=== PATIENT | female | born 1980 | race Caucasian/White ===

== ENCOUNTER 2018-07-12 16:04 | Inpatient (IN) | payer BC ==
[2018-07-12] MEDS ORDERED: DINOPROSTONE 10 MG INSERT.ER VAGINAL ONE (16:29)
--- NOTE | 2018-07-12 17:02 | P.HPOB ---
History of Present Illness H&P Date: 07/12/18 Chief Complaint: Requesting induction of labor. This patient is a pleasant 38-year-old 2 para 1 female 39-4/7 weeks gestation who is admitted to labor and delivery for two-stage induction of labor secondary to maternal discomfort requesting induction of labor. Patient's care is complicated by advanced for maternal age. Patient was counseled about her advanced for maternal age and she did not request any specialized testing or maternal medicine referral. Anatomy ultrasound has been normal. She's had normal testing with nonstress tests and serial ultrasounds. Most recent ultrasound was on June 29 which showed estimated weight at 7 lbs. 10 oz. Review of Systems Gastrointestinal: Reports heartburn Genitourinary: Reports Menstruation: Reports amenorrhea Past Medical History Past Medical History: No Reported History Additional Past Medical History / Comment(s): Patient had a term vaginal delivery 7 lbs. 9 oz. baby girl in 2010. History of Any Multi-Drug Resistant Organisms: None Reported Past Surgical History: No Surgical Hx Reported Past Anesthesia/Blood Transfusion Reactions: No Reported Reaction Past Psychological History: Depression Smoking Status: Former smoker (Quit with the .) Past Alcohol Use History: None Reported Past Drug Use History: None Reported Medications and Allergies Home Medications Medication Instructions Recorded Confirmed Type Calcium Carbonate [Tums] 500 mg PO DIRECTED PRN 07/12/18 07/12/18 History Pnv No.95/Ferrous Fum/Folic AC 1 tab PO DAILY 07/12/18 07/12/18 History [ Multivitamin Tablet] Allergies Allergy/AdvReac Type Severity Reaction Status Date / Time Sulfa (Sulfonamide Allergy Rash/Hives Verified 07/12/18 16:28 Antibiotics) Exam Intake and Output 07/12/18 07/12/18 07/12/18 06:59 14:59 22:59 Other: Weight 144.242 kg - OBG Physical Exam Abdomen: bowel sounds normal, no diffuse tenderness, no bruit present, no guarding noted, no hepatomegaly, no splenomegaly, no mass Vulva: both: normal Vagina: normal moisture, no discharge Cervix: no lesion (Cervix is fingertip and thick.), no discharge Uterus: enlarged (Fundal height is 42 cm) Results blood work shows she is O-, rubella immune, RPR nonreactive, hepatitis B is negative, toxoplasmosis was negative, Glucola was 142 with a normal three- hour gtt., patient received RhoGAM on May 03, growth ultrasounds have been normal and most recent ultrasound shows 7 lbs. 10 oz. Group B strep was negative. Assessment and Plan Assessment: This is a pleasant 38-year-old 2 para 1 female 39-4/7 weeks gestation who is presenting for requested two-stage induction of labor secondary to maternal discomfort at term and unfavorable cervix. Patient I've had a long discussion about induction process and increased risk of section. Patient's time wishes to proceed. Plan is Cervidil placement and anticipate vaginal delivery. (1) 39 weeks gestation of Current Visit: Yes Status: Acute Code(s): Z3A.39 - 39 WEEKS GESTATION OF SNOMED Code(s): 63366289 (2) Elderly multigravida in third trimester Current Visit: Yes Status: Acute Code(s): O09.523 - SUPERVISION OF ELDERLY MULTIGRAVIDA, THIRD TRIMESTER SNOMED Code(s): 056119204 (3) Morbid obesity Current Visit: Yes Status: Acute Code(s): E66.01 - MORBID (SEVERE) OBESITY DUE TO EXCESS CALORIES SNOMED Code(s): 137454728 (4) Elective induction of labor planned Current Visit: Yes Status: Acute Code(s): QMY5860 - SNOMED Code(s): 653395116
[2018-07-12 17:03] VITALS: BMI 51.3
[2018-07-13] MEDS ORDERED: TERBUTALINE 1 MG/ML VIAL SQ PRN (00:57)
[2018-07-13] MEDS ORDERED: LIDOCAINE 0.5% (PF) 5 MG/ML (50 ML SDV) SQ PRN (00:57)
[2018-07-13] MEDS ORDERED: OXYTOCIN 10 UNIT/ML 1 ML VIAL IM PRN (00:57)
[2018-07-13] MEDS ORDERED: METHYLERGONOVINE 0.2 MG/ML 1 ML AMP IM PRN (00:57)
[2018-07-13] MEDS ORDERED: OXYTOCIN 30 UNITS/500 ML NS 30 UNIT in SALINE 1 500ML.BAG IV SCH (00:57)
[2018-07-13] MEDS ORDERED: CARBOPROST TROMETHAMINE 250 MCG/ML 1 ML AMP IM PRN (00:57)
[2018-07-13] MEDS: BUTORPHANOL 1 MG/ML 1 ML VIAL IV PRN ×2 (01:19→06:07)
[2018-07-13 01:33] LABS: Basophils % (A) 0 %; Eosinophils # (A) 0.1 k/uL (0-0.7); Eosinophils % (A) 1 %; HCT 34.5 % (34.0-46.0); HGB 11.4 gm/dL (11.4-16.0); Lymphocytes # (A) 2.5 k/uL (1.0-4.8); Lymphocytes % (A) 21 %; MCH 29.2 pg (25.0-35.0); MCHC 33.1 g/dL (31.0-37.0); MCV 88.3 fL (80.0-100.0); Mean Platelet Volume 9.1; Monocytes # (A) 0.6 k/uL (0-1.0); Monocytes % (A) 5 %; Neutrophils # (A) 8.6 k/uL (1.3-7.7); Neutrophils % (A) 72 %; Platelet Count 254 k/uL (150-450); RDW 13.9 % (11.5-15.5); WBC 11.9 k/uL (3.8-10.6)
[2018-07-13] MEDS: LACTATED RINGERS 1,000 ML IV SCH ×3 (05:45→11:52)
[2018-07-13] MEDS ORDERED: fentaNYL (PF) 50 MCG/ML 5 ML AMP ONE (07:59)
[2018-07-13] MEDS ORDERED: ROPIVACAINE 5MG/ML 20ML VIAL ONE (07:59)
[2018-07-13] MEDS ORDERED: SODIUM CHLORIDE 0.9% 100 ML BAG ONE (07:59)
[2018-07-13] MEDS ORDERED: ONDANSETRON 4 MG/2 ML VIAL IVP PRN (10:19)
[2018-07-13] MEDS ORDERED: ZOLPIDEM 5 MG TAB PO PRN (17:04)
[2018-07-13] MEDS ORDERED: diphenhydrAMINE 50 MG/ML 1 ML VIAL IVP PRN (17:04)
[2018-07-13] MEDS ORDERED: IBUPROFEN 600 MG TAB PO PRN (17:04)
[2018-07-13] MEDS ORDERED: OXYTOCIN 20 UNITS/1000 ML NS 1,000 ML IV SCH (17:04)
[2018-07-13] MEDS ORDERED: diphenhydrAMINE 25 MG CAP PO PRN (17:04)
[2018-07-13] MEDS ORDERED: HYDROCORTISONE 2.5% RECTAL CREAM 30 GM TUBE RECTAL PRN (17:04)
[2018-07-13] MEDS ORDERED: Rhogam IMMUNE GLOBULIN 1,500 UNIT/1 ML IM ONE (17:04)
[2018-07-13] MEDS ORDERED: BENZOCAINE/MENTHOL SPRAY 1 GM/SPRAY AEROSOL TOPICAL PRN (17:04)
[2018-07-13] MEDS ORDERED: LANOLIN CREAM 5 GM TUBE TOPICAL PRN (17:04)
[2018-07-13] MEDS ORDERED: ACETAMINOPHEN TAB 325 MG TAB PO PRN (17:04)
[2018-07-13] MEDS ORDERED: BISACODYL 10 MG SUPP RECTAL PRN (17:04)
[2018-07-13] MEDS ORDERED: SIMETHICONE 80 MG CHEWABLE PO PRN (17:04)
[2018-07-13] MEDS ORDERED: WITCH HAZEL 1 EACH MED..PAD TOPICAL PRN (17:04)
--- NOTE | 2018-07-13 17:30 | P.PROBDLV ---
Vaginal Delivery Note - . Vaginal Delivery Note: Normal vaginal delivery viable female Apgars 8 and 9 delivery time is 1654 hrs. Please see dictated H&P for intimate details of this patient's admission. Brief summary this is a pleasant 38-year-old 2 para 1 female 39-4/7 weeks who presents to labor and delivery last evening for two-stage induction of labor secondary to unfavorable cervix. Patient had a Cervidil placed last evening and this morning is about 2 cm and thick. Artificial rupture membranes was done for clear fluid. Patient's labor progresses and is augmented with Pitocin. She does get an epidural for pain control. Patient gets to complete pushes for approximately 5 or 6 times pushes the head to the perineum. Posterior perineum is supported we have controlled delivery of the 's head over the intact perineum. Mouth and nares are bulb suctioned. There is no evidence of nuchal cord. With gentle downward traction we then have deliver the anterior and posterior shoulder and rest this 's body. This is a vigorous viable female Apgars are 8 and 9 delivery time is 1654 hrs. Infant is late on the mother's abdomen after the cord is done pulsating is doubly clamped and cut. Placenta is then spontaneously delivered intact. Inspection of perineum shows a left periurethral laceration that doesn't require a couple 3 os sutures for hemostasis otherwise no lacerations. Infant and mother are stable delivery room. There are no complications. All counts are correct 3.
[2018-07-13] MEDS: SENNOSIDES-DOCUSATE SODIUM 1 EACH TAB PO SCH ×2 (20:19→21:28)
[2018-07-14 00:29] VITALS: RESP 18
--- NOTE | 2018-07-14 06:52 | P.PNOBGVD ---
Subjective - Subjective Patient reports: Reports appetite normal, Reports voiding normally, Reports pain well controlled, Reports ambulating normally : doing well Objective - Latest Vital Signs Latest vital signs: Vital Signs Temp Pulse Resp BP Pulse Ox 07/14/18 04:00 98.1 F 79 18 108/62 98 07/14/18 00:00 99.0 F 80 18 118/60 97 07/13/18 19:15 97.7 F 69 17 118/56 98 07/13/18 18:45 96.1 F L 71 18 123/58 07/13/18 18:15 96.3 F L 73 18 110/54 07/13/18 18:00 82 121/58 07/13/18 17:45 97.3 F L 72 18 115/54 07/13/18 17:30 97.6 F 68 18 125/55 07/13/18 17:15 97.9 F 84 18 137/64 Intake and Output 07/13/18 07/13/18 07/14/18 14:59 22:59 06:59 Output Total 150 Balance -150 Output: Estimated Blood Loss 150 Other: # Voids 1 1 - Exam Lungs: bilateral: normal Chest: Normal S1, Normal S2 Extremities: Present: normal Abdomen: Present: normal appearance, soft Uterus: Present: normal, firm Assessment and Plan Assessment: day #1. Patient is resting without complaints and wishes to go home. Vital signs are stable she is afebrile. Uterus is firm nontender and she is having normal lochia. My impression this is a normal course. Plan is to continue routine care discharge home later today. (1) 39 weeks gestation of Current Visit: Yes Status: Acute Code(s): Z3A.39 - 39 WEEKS GESTATION OF SNOMED Code(s): 83961538 (2) Elderly multigravida in third trimester Current Visit: Yes Status: Acute Code(s): O09.523 - SUPERVISION OF ELDERLY Orlin WALKER, THIRD TRIMESTER SNOMED Code(s): 704653483 (3) Morbid obesity Current Visit: Yes Status: Acute Code(s): E66.01 - MORBID (SEVERE) OBESITY DUE TO EXCESS CALORIES SNOMED Code(s): 037263836 (4) Elective induction of labor planned Current Visit: Yes Status: Acute Code(s): FLU0134 - SNOMED Code(s): 262979352
--- NOTE | 2018-07-14 06:55 | P.DS ---
Providers Date of admission: 07/12/18 16:04 Expected date of discharge: 07/14/18 Attending physician: Graham Cazares Primary care physician: Stated None - Discharge Diagnosis(es) (1) 39 weeks gestation of Current Visit: Yes Status: Acute (2) Elderly multigravida in third trimester Current Visit: Yes Status: Acute (3) Morbid obesity Current Visit: Yes Status: Acute (4) Elective induction of labor planned Current Visit: Yes Status: Acute Hospital Course: Please see dictated H&P for intimate details of this patient's admission. Brief summary this is a pleasant 38-year-old 2 para 1 female 39-4/7 weeks gestation who is admitted to labor and delivery for two-stage induction of labor. The's is admitted has Cervidil placement was on have a vaginal delivery viable female . Please see dictated delivery note. day #1 patient without complaints and wishes to go home. Patient's felt be stable for discharge home follow up with me in 6 weeks. Procedures: Two-stage induction of labor and normal vaginal delivery Patient Condition at Discharge: Good Plan - Discharge Summary New Discharge Prescriptions: New Ibuprofen [Motrin] 600 mg PO Q6HR PRN #30 tab PRN Reason: Mild Pain Or Fever >= 100.5 No Action Pnv No.95/Ferrous Fum/Folic AC [ Multivitamin Tablet] 1 tab PO DAILY Calcium Carbonate [Tums] 500 mg PO DIRECTED PRN PRN Reason: Indigestion Discharge Medication List Calcium Carbonate [Tums] 500 mg PO DIRECTED PRN 07/12/18 [History] Pnv No.95/Ferrous Fum/Folic AC [ Multivitamin Tablet] 1 tab PO DAILY 07/12/18 [History] Ibuprofen [Motrin] 600 mg PO Q6HR PRN #30 tab 07/14/18 [Rx] Follow up Appointment(s)/Referral(s): Graham Cazares MD [STAFF PHYSICIAN] - 09/02/18 2:00 pm Patient Instructions/Handouts: Vaginal Delivery (DC) Discharge Disposition: HOME SELF-CARE
[2018-07-14] MEDS: SENNOSIDES-DOCUSATE SODIUM 1 EACH TAB PO SCH (08:34)
[2018-07-14 08:37] VITALS: PULSE 73
[2018-07-14 18:32] VITALS: BP 113/56; TEMP 98
== END 2018-07-14 18:00 | disposition home or self-care (01) | DRG 807 ==
LOC: 4FBP 16:04
PROVIDERS: ADMIT Obstetrics & Gynecology; ATTEND Obstetrics & Gynecology
PROC: 3E0P7VZ Introduction of Hormone into Female Reproductive, Via Natural or Artificial Opening (ICD-10-PCS; 2018-07-12)
PROC: 10E0XZZ Delivery of Products of Conception, External Approach (ICD-10-PCS; principal; 2018-07-13)
PROC: 0UQMXZZ Repair Vulva, External Approach (ICD-10-PCS; 2018-07-13)
PROC: 3E033VJ Introduction of Other Hormone into Peripheral Vein, Percutaneous Approach (ICD-10-PCS; 2018-07-13)
PROC: 10907ZC Drainage of Amniotic Fluid, Therapeutic from Products of Conception, Via Natural or Artificial Opening (ICD-10-PCS; 2018-07-13)
PROC: 3E0234Z Introduction of Serum, Toxoid and Vaccine into Muscle, Percutaneous Approach (ICD-10-PCS; 2018-07-13)
PROC: 00HU33Z Insertion of Infusion Device into Spinal Canal, Percutaneous Approach (ICD-10-PCS; 2018-07-13)
PROC: 3E0R3BZ Introduction of Anesthetic Agent into Spinal Canal, Percutaneous Approach (ICD-10-PCS; 2018-07-13)
DX: O99.214 Obesity complicating childbirth (principal); Z37.0 Single live birth; E66.01 Morbid (severe) obesity due to excess calories; O26.893 Other specified pregnancy related conditions, third trimester; O71.82 Other specified trauma to perineum and vulva; F32.9 Major depressive disorder, single episode, unspecified; Z67.41 Type O blood, Rh negative; Z3A.39 39 weeks gestation of pregnancy; Z87.891 Personal history of nicotine dependence; Z79.899 Other long term (current) drug therapy; O99.344 Other mental disorders complicating childbirth; Z88.2 Allergy status to sulfonamides
CPT/HCPCS: 85025; 85461; 86850; 86870; 86880; 86900; 86901; 86902

== ENCOUNTER → 2020-12-10 | Outpatient (CLI) | payer OTHER ==
--- NOTE | 2020-12-11 08:33 | US ---
EXAMINATION TYPE: Ultrasound OB <= 14 week fetus DATE OF EXAM: 12/10/2020 3:52 PM COMPARISON: NONE CLINICAL HISTORY: 40-year-old female Z36 Confirm dates and viability. Early new , no symptom s, EXAM PERFORMED: OBTA FINDINGS: EXAM MEASUREMENTS: GESTATIONAL AGE / DATING Physician Established: Not yet established Dates by LMP: (12 weeks/2 days) EDC: 06/22/2021 Dates by First Scan: No previous this is first scan Dates by Current Scan for: (12 weeks/0 days) EDC: 06/24/2021 MATERNAL ANATOMY Uterus: 17.3 x 10.1 x 7.9cm Right Ovary: Unable to visualize. The gravid uterus partially obscures the adnexa. Left Ovary: 2.9 x 1.9 x 1.5cm Post CDS / Adnexa: wnl Presence of free fluid: no Presence of corpus luteal cyst: not seen Presence of subchorionic bleed: no GESTATION / SURVEY CRL: 5.3cm (12 weeks/0 days) MSD: wnl Yolk Sac (normal less than 6mm): not seen Heart Rate: 150 bpm Rhythm: Normal IUP: Viable IUP Date of LMP: 09/15/2020 IMPRESSION: 1. Single live intrauterine with estimated gestational age of 12 weeks 2 days by LMP. Curre nt ultrasound biometry is concordant (12 weeks 0 days). 2. Complete survey recommended at 18-20 weeks.
== END | disposition home or self-care (01) ==
LOC: RADUSWWP 15:29
PROVIDERS: ATTEND Obstetrics & Gynecology
DX: Z34.81 Encounter for supervision of other normal pregnancy, first trimester (principal); Z3A.12 12 weeks gestation of pregnancy
CPT/HCPCS: 76801

== ENCOUNTER 2021-06-11 20:17 | Inpatient (IN) | payer OTHER ==
[2021-06-11] MEDS ORDERED: OXYTOCIN 10 UNIT/ML 1 ML VIAL IM PRN ×2 (22:10→23:43)
[2021-06-11] MEDS ORDERED: CARBOPROST TROMETHAMINE 250 MCG/ML 1 ML AMP IM PRN ×2 (22:10→23:41)
[2021-06-11] MEDS ORDERED: TERBUTALINE 1 MG/ML VIAL SQ PRN ×2 (22:10→23:44)
[2021-06-11] MEDS ORDERED: LIDOCAINE 1% (PF) 10 MG/ML (30 ML SDV) SQ PRN ×2 (22:10→23:42)
[2021-06-11] MEDS ORDERED: METHYLERGONOVINE 0.2 MG/ML 1 ML AMP IM PRN ×2 (22:10→23:42)
[2021-06-11] MEDS ORDERED: LACTATED RINGERS 1,000 ML IV SCH (22:15)
[2021-06-11 22:39] LABS: Basophils % (A) 0 %; Eosinophils # (A) 0.1 k/uL (0-0.7); Eosinophils % (A) 1 %; HCT 35.8 % (34.0-46.0); HGB 11.8 gm/dL (11.4-16.0); Lymphocytes % (A) 12 %; MCHC 33.1 g/dL (31.0-37.0); MCV 93.7 fL (80.0-100.0); Monocytes # (A) 0.7 k/uL (0-1.0); Monocytes % (A) 4 %; Neutrophils # (A) 14.2 k/uL (1.3-7.7); Neutrophils % (A) 83 %; Platelet Count 250 k/uL (150-450); RBC 3.82 m/uL (3.80-5.40); RDW 13.7 % (11.5-15.5); WBC 17.2 k/uL (3.8-10.6)
--- NOTE | 2021-06-11 22:43 | P.HPOB ---
History of Present Illness H&P Date: 06/11/21 Chief Complaint: Contractions This patient is a pleasant 41-year-old 3 para 2 female estimated date of confinement 06/22/2021 estimated gestational age 38-3/7 weeks who presents to labor and delivery with complaints of regular painful contractions. Patient is a office approximately 2 days ago cervix was not dilated she is now 2-3 cm dilated early active labor. care is complicated by advanced for maternal age. Patient declined any genetic testing however has had growth ultrasounds and nonstress testing which have been normal. Most recent ultrasound was 2 days ago showed the baby 7 lbs. 10 oz. care has also been complicated by proteinuria. This proteinuria has been present since the beginning of her and I have done serial 24-hour urines most recently one on May 15 which showed 786 mg of protein; plan was to repeat this po stpartum referred to urology. Review of Systems Genitourinary: Reports Menstruation: Reports amenorrhea Past Medical History Past Medical History: No Reported History Additional Past Medical History / Comment(s): Patient had a term vaginal delivery 7 lbs. 9 oz. baby girl in 2010. Second baby was 8 lbs. 13 oz. vaginal delivery. History of Any Multi-Drug Resistant Organisms: None Reported Past Surgical History: No Surgical Hx Reported Additional Past Surgical History / Comment(s): skin cancer removed from nose Past Anesthesia/Blood Transfusion Reactions: No Reported Reaction Past Psychological History: No Psychological Hx Reported Smoking Status: Never smoker Past Alcohol Use History: None Reported Past Drug Use History: None Reported - Past Family History Mother Family Medical History: No Reported History Medications and Allergies Home Medications Medication Instructions Recorded Confirmed Type Calcium Carbonate [Tums] 500 mg PO DIRECTED PRN 07/12/18 06/11/21 History Pnv No.95/Ferrous Fum/Folic AC 1 tab PO DAILY 07/12/18 06/11/21 History [ Multivitamin Tablet] Allergies Allergy/AdvReac Type Severity Reaction Status Date / Time Sulfa (Sulfonamide Allergy Rash/Hives Verified 07/12/18 16:28 Antibiotics) Exam Intake and Output 06/11/21 06/11/21 06/11/21 06:59 14:59 22:59 Other: Weight 137.438 kg - OBG Physical Exam Vulva: both: normal Vagina: normal moisture, no discharge Cervix: no lesion (Cervix is 2-3 on effaced. Patient's having bloody show), no discharge Uterus: enlarged Results labs were done on November 11 shows she is O-, rubella immune, RPR nonreactive, hepatitis B negative, HIV was nonreactive, Glucola was 153 with a normal three-hour gtt., group B strep was negative, patient received RhoGAM on April 10. Assessment and Plan Assessment: This is a pleasant 41-year-old 3 para 2 female 38-3/7 weeks' gestation active labor. Plan is anticipate normal vaginal delivery. (1) Normal labor Current Visit: Yes Status: Acute Code(s): O80 - ENCOUNTER FOR FULL-TERM UNCOMPLICATED DELIVERY; Z37.9 - OUTCOME OF DELIVERY, UNSPECIFIED SNOMED Code(s): 81813501 (2) 39 weeks gestation of Current Visit: No Status: Acute Code(s): Z3A.39 - 39 WEEKS GESTATION OF SNOMED Code(s): 87760318 (3) Elderly multigravida in third trimester Current Visit: No Status: Acute Code(s): O09.523 - SUPERVISION OF ELDERLY MULTIGRAVIDA, THIRD TRIMESTER SNOMED Code(s): 872859885 (4) Morbid obesity Current Visit: No Status: Acute Code(s): E66.01 - MORBID (SEVERE) OBESITY DUE TO EXCESS CALORIES SNOMED Code(s): 621890802
[2021-06-12] MEDS: LACTATED RINGERS 1,000 ML IV SCH ×3 (00:02→08:10)
[2021-06-12] MEDS ORDERED: BUTORPHANOL 1 MG/ML 1 ML VIAL IV PRN (01:57)
[2021-06-12] MEDS ORDERED: OXYTOCIN 30 UNITS/500 ML NS 30 UNIT in SALINE 1 500ML.BAG IV SCH ×2 (02:30→10:15)
[2021-06-12] MEDS ORDERED: OXYTOCIN 30 UNITS/500 ML NS 500 ML IV SCH (03:00)
[2021-06-12] MEDS ORDERED: SODIUM CHLORIDE 0.9% 100 ML BAG ONE (04:17)
[2021-06-12] MEDS ORDERED: ROPIVACAINE 5MG/ML 20ML VIAL ONE (04:17)
[2021-06-12] MEDS ORDERED: fentaNYL (PF) 50 MCG/ML 5 ML AMP ONE (04:17)
--- NOTE | 2021-06-12 06:15 | P.MSEPDOC ---
Presenting Problems - Arrival Data Date of Arrival on Unit: 06/11/21 Time of Arrival on Unit: 22:00 Mode of Transport: Ambulatory - Complaint OB-Reason for Admission/Chief Complaint: Possible Onset of Labor Medical History - Information : 3 Para: 2 Term: 2 : 0 Abortions: Spontaneous or Elective: 0 Number of Living Children: 2 - Gestational Age Gestational Age by IVAN (wks/days): 38 Weeks and 3 Days Review of Systems - Review of Systems Constitutional: No problems Breast: No problems ENT: No problems Cardiovascular: No problems Respiratory: No problems Gastrointestinal: No problems Genitourinary: No problems Musculoskeletal: No problems Neurological: No problems Skin: No problems Vital Signs - Temperature Temperature: 97.2 F Temperature Source: Temporal Artery Scan - Pulse Right Sitting Pulse Rate: 93 Pulse Assessment Method: Automatic Cuff - Respirations Respiratory Rate: 16 Oxygen Delivery Method: Room Air O2 Sat by Pulse Oximetry: 99 - Blood Pressure Right Arm Sitting Blood Pressure: 149/87 Blood Pressure Mean: 107 Blood Pressure Source: Automatic Cuff Medical Screen Scoring - Cervical Exam Dilation (cm): 2.5 - Assessment - Baby A Heart Rate - NICHD Category: Category I (Normal) Physician Notification - Physician Notified Physician Notified Date: 06/11/21 Physician Notified Time: 21:51 Physician: Sage New Order Received: Yes Maternal Triage Index - Maternal Triage Index Presenting for scheduled procedure w/no complaint: No - Stat/Priority 1 Stat Priority 1: No - Urgent/Priority 2 Urgent Priority 2: No - Prompt/Priority 3 Prompt Priority 3: No - Non-Urgent/Priority 4 Non-Urgent Priority 4: Yes Criteria Met for Priority 4: Dr Cazares called at 2151 Disposition - Disposition OB Disposition: Admit, LDRP Suite I agree with the RN Medical Screening Exam: Yes Case reviewed; plan agreed upon as documented in EMR&OBIX.: Yes Diagnosis: ENCOUNTER FOR FULL-TERM UNCOMPLICATED DELIVERY
[2021-06-12] MEDS ORDERED: Rhogam IMMUNE GLOBULIN 1,500 UNIT/1 ML IM ONE (10:03)
[2021-06-12] MEDS ORDERED: ACETAMINOPHEN TAB 325 MG TAB PO PRN (10:03)
[2021-06-12] MEDS ORDERED: BENZOCAINE/MENTHOL SPRAY 1 GM/SPRAY AEROSOL TOPICAL PRN (10:03)
[2021-06-12] MEDS ORDERED: SIMETHICONE 80 MG CHEWABLE PO PRN (10:03)
[2021-06-12] MEDS ORDERED: LANOLIN CREAM 5 GM TUBE TOPICAL PRN (10:03)
[2021-06-12] MEDS ORDERED: diphenhydrAMINE 25 MG CAP PO PRN (10:03)
[2021-06-12] MEDS ORDERED: IBUPROFEN 600 MG TAB PO PRN (10:03)
[2021-06-12] MEDS ORDERED: HYDROCORTISONE 2.5% RECTAL CREAM 30 GM TUBE RECTAL PRN (10:03)
[2021-06-12] MEDS ORDERED: ZOLPIDEM 5 MG TAB PO PRN (10:03)
[2021-06-12] MEDS ORDERED: diphenhydrAMINE 50 MG CAP PO PRN (10:03)
--- NOTE | 2021-06-12 11:24 | P.PROBDLV ---
Vaginal Delivery Note - . Vaginal Delivery Note: Normal vaginal delivery of viable female Apgars are 8 and 8 delivery time is 0934 hours. Please see dictated H&P for intimate details of this patient's admission. In brief summary this is a pleasant 41-year-old 3 para 2 female 38-3/7 weeks gestation admitted to labor and delivery in active labor. Patient is artificial rupture membranes for clear fluid. Labor progresses and does get some augmentation with Pitocin. Patient request an epidural and gets good relief. Patient does state 4-5 cm for a beta time but then progresses. She gets to complete and pushes approximately 1 time and with perineal support we have controlled delivery of the 's head over the intact perineum. Infant's head is straight occiput anterior. Mouth and nares are bulb suctioned. There is no evidence of a nuchal cord. With maternal effort we then easily hav e deliver the anterior and posterior shoulder and rest this infant's body. This is a vigorous viable female infant Apgars are 8 and 8 delivery time was 0934 hours. Infant is laid on the mother's abdomen. After the cord is done pulsating it is doubly clamped and cut appears to be trivascular. The placenta is then spontaneously delivered intact. Inspection of the perineum shows no laceration and no repairs required. Infant and mother are stable in delivery room. There are no complications.
[2021-06-12] MEDS: SENNOSIDES-DOCUSATE SODIUM 1 EACH TAB PO SCH (19:52)
[2021-06-13] MEDS: SENNOSIDES-DOCUSATE SODIUM 1 EACH TAB PO SCH (08:12)
[2021-06-13 08:38] VITALS: BP 142/75; PULSE 74; RESP 18; TEMP 97.5
[2021-06-13 08:57] LABS: Basophils % (A) 0 %; Eosinophils # (A) 0.3 k/uL (0-0.7); Eosinophils % (A) 2 %; HCT 32.1 % (34.0-46.0); HGB 10.5 gm/dL (11.4-16.0); Lymphocytes # (A) 2.5 k/uL (1.0-4.8); Lymphocytes % (A) 21 %; MCH 30.7 pg (25.0-35.0); MCHC 32.7 g/dL (31.0-37.0); Monocytes # (A) 0.5 k/uL (0-1.0); Monocytes % (A) 4 %; Neutrophils # (A) 8.5 k/uL (1.3-7.7); Neutrophils % (A) 71 %; Platelet Count 240 k/uL (150-450); RBC 3.42 m/uL (3.80-5.40); RDW 13.7 % (11.5-15.5)
--- NOTE | 2021-06-13 11:48 | P.DS ---
Providers Date of admission: 06/11/21 22:05 Expected date of discharge: 06/13/21 Attending physician: Graham Cazares Primary care physician: Stated None Hospital Course: Is a 41-year-old female 3 para 2 at 38-4/7 weeks who presented in active labor. She delivered vaginally a viable female with scores of 7 at 1 minute and 8 at 5 minutes and weight of 8 lbs. 13 oz. Her course has been uncomplicated. She is breast and bottlefeeding. Lochia is decreasing. Her pain is well-controlled with ibuprofen and Tylenol. Vital signs are stable. Abdomen is soft with fundus firm and nontender. Extremities show negative Homans. Impression is status post vaginal delivery day #1. Plan is to discharge home today. Routine instructions are given. She declines a need for any pain medication. She has a breast pump at home. She is advised to call the office if she has any further questions or concerns prior to her appointment time. She is advised to follow up with Dr. Cazares in 6 weeks. Procedures: Spontaneous vaginal delivery of a viable female infant on 06/12/2021 Patient Condition at Discharge: Stable Plan - Discharge Summary New Discharge Prescriptions: No Action Pnv No.95/Ferrous Fum/Folic AC [ Multivitamin Tablet] 1 tab PO DAILY Calcium Carbonate [Tums] 500 mg PO DIRECTED PRN PRN Reason: Indigestion Discharge Medication List Calcium Carbonate [Tums] 500 mg PO DIRECTED PRN 07/12/18 [History] Pnv No.95/Ferrous Fum/Folic AC [ Multivitamin Tablet] 1 tab PO DAILY 07/12/18 [History] Follow up Appointment(s)/Referral(s): Graham Cazares MD [STAFF PHYSICIAN] - 07/22/21 9:15 am Activity/Diet/Wound Care/Special Instructions: Instructions 1. Do not begin any exercise program for 3 weeks. 2. Do not resume sexual relations for 3 weeks or longer if uncomfortable. 3. You may take tub baths or showers at any time. 4. You may use tampons if desired after 3 weeks. 5. Keep the area of episiotomy (stitches) clean and dry. 6. If you are not nursing, wear a good fitting, supportive bra during the day and limit fluid intake for at least 1 week to prevent breast engorgement. 7. Call the office, [phone], within the next week to make appointment for your 6 week checkup if it has not already been made. 8. Report any of the following occurrences to the doctor promptly: a. Heavy, excessive bleeding b. Chills, fever c. Burning or frequency of urination d. Pain or redness and breasts if nursing e. Increasing pain or swelling in episiotomy (stitches). In addition to the above instructions, the following additional should be followed: 1. No heavy lifting or straining (exercising) until after 6 week checkup. 2. Keep abdominal incision clean and dry: You may wear a dressing if more comfortable. 3. Make office appointment for 10 days after going home or as instructed by her doctor. Discharge Disposition: HOME SELF-CARE
== END 2021-06-13 12:11 | disposition home or self-care (01) | DRG 807 ==
LOC: FBPOP 20:17 → 4FBP 22:05
PROVIDERS: ADMIT Obstetrics & Gynecology; ATTEND Obstetrics & Gynecology
PROC: 10E0XZZ Delivery of Products of Conception, External Approach (ICD-10-PCS; principal; 2021-06-12)
DX: O12.14 Gestational proteinuria, complicating childbirth (principal); Z37.0 Single live birth; O99.214 Obesity complicating childbirth; E66.01 Morbid (severe) obesity due to excess calories; Z3A.38 38 weeks gestation of pregnancy; Z85.828 Personal history of other malignant neoplasm of skin; Z88.2 Allergy status to sulfonamides
CPT/HCPCS: 59025; 85025; 85461; 86850; 86900; 86901; 99213